=== PATIENT | female | born 1965 | race African-American/Black ===

== ENCOUNTER 2024-05-17 00:30 | Emergency (ER) | payer MEDICAID ==
[~2024-05-17] VITALS: Ht 157.5 cm; Wt 71.5 kg
[2024-05-17 00:43] VITALS: O2SAT 97
[2024-05-17 01:10] LABS: HEMATOCRIT. 24.5 % (36.0-48.0); MEAN CORPUSCULAR HGB CONC 28.5 g/dL (31.0-37.0); MEAN CORPUSCULAR VOLUME 59.7 fL (81.0-99.0); MEAN PLATELET VOLUME 8.2 fl (7.4-10.4); PLATELET 216 x1000/uL (130-400); RED CELL DISTRIBUTION WIDTH 22.6 % (11.6-14.6); WHITE BLOOD COUNT 4.8 x1000/uL (4.5-11.0)
[2024-05-17 01:16] LABS: DIFFERENTIAL COMMENT 1
[2024-05-17 01:20] LABS: CHLORIDE 115 mEq/L (98-107); POTASSIUM 3.4 mEq/L (3.5-5.1); SODIUM 146 mEq/L (136-145)
[2024-05-17 01:20] LABS: CLARITY URINE CLEAR (CLEAR); COLOR URINE YELLOW (YELLOW); GLUCOSE URINE 3+ (NEGATIVE); KETONES URINE NEGATIVE (NEGATIVE); LEUKOCYTE ESTERASE URINE 2+ (NEGATIVE); NITRITE URINE NEGATIVE (NEGATIVE); OCCULT BLOOD URINE NEGATIVE (NEGATIVE); PROTEIN URINE NEGATIVE (NEGATIVE); SPECIFIC GRAVITY URINE 1.019 (1.005-1.030); UROBILINOGEN URINE 0.2 E.U./dL (0.2-1.0)
[2024-05-17 01:21] LABS: CARBON DIOXIDE 21 mEq/L (21-32)
[2024-05-17 01:22] LABS: CALCIUM 9.3 mg/dL (8.7-10.4)
[2024-05-17 01:26] LABS: CREATININE 1.2 mg/dL (0.6-1.0); GLUCOSE 121 mg/dL (70-105)
[2024-05-17 01:27] LABS: ETHANOL BLOOD 113 mg/dL (<10); UREA NITROGEN BLOOD 9 mg/dL (9-23)
[2024-05-17 01:28] LABS: ACETAMINOPHEN < 2 ug/mL (10-30); ALANINE AMINOTRANSFERASE 13 IU/L (10-49); ALBUMIN 4.7 g/dL (3.2-4.8); ASPARTATE AMINOTRANSFERASE 18 IU/L (<34)
[2024-05-17 01:29] LABS: BILIRUBIN TOTAL 0.5 mg/dL (0.1-1.0); PROTEIN TOTAL 7.6 g/dL (6.0-8.3)
[2024-05-17 01:33] LABS: *AMPHETAMINES SCREEN URINE NEGATIVE (NEGATIVE); *BARBITURATES SCREEN URINE NEGATIVE (NEGATIVE); *BENZODIAZEPINES SCREEN URINE NEGATIVE (NEGATIVE); *COCAINE SCREEN URINE PRESUMPTIVE POSITIVE (NEGATIVE); CANNABINOID URINE SCREEN PRESUMPTIVE POSITIVE (NEGATIVE); METHADONE URINE SCREEN NEGATIVE (NEGATIVE); OPIATES URINE SCREEN NEGATIVE (NEGATIVE); PHENCYCLIDINE URINE SCREEN NEGATIVE (NEGATIVE)
[2024-05-17 01:34] LABS: ECSTASY MDMA SCREEN URINE NEGATIVE (NEGATIVE)
[2024-05-17 02:01] LABS: RBC URINE 0-2 /hpf (0-2); SQUAMOUS EPITHELIAL CELL URINE FEW /lpf (RARE/1+)
[2024-05-17 02:02] LABS: BACTERIA URINE NONE SEEN
[2024-05-17] MEDS: GABAPENTIN 300MG CAPSULE PO ONE (04:56)
[2024-05-17] MEDS: QUETIAPINE FUMARATE 50MG TABLET PO ONE (04:56)
[2024-05-17 05:07] LABS: ATYPICAL LYMPHOCYTES 1; PLATELET ESTIMATE NORMAL
[2024-05-17 05:20] LABS: HYPOCHROMASIA 2+; MICROCYTOSIS 2+
[2024-05-17] MEDS: NITROFURANTOIN 100MG M/M CAPSULE PO SCH (09:15)
[2024-05-17] MEDS: QUETIAPINE FUMARATE 50MG TABLET PO SCH (21:00)
[2024-05-17] MEDS: ATORVASTATIN CALCIUM 10MG TABLET PO SCH (21:00)
[2024-05-17] MEDS: MONTELUKAST SODIUM 10MG TABLET PO SCH (21:00)
[2024-05-17] MEDS: GABAPENTIN 300MG CAPSULE PO SCH (21:01)
[2024-05-18 11:06] VITALS: BP 127/82; PULSE 78; RESP 16; TEMP 36.94740; O2SAT 100
== END 2024-05-18 11:33 | disposition home or self-care (01) ==
LOC: ER 00:30
DX: R45.851 Suicidal ideations (principal); E11.9 Type 2 diabetes mellitus without complications; I10 Essential (primary) hypertension; Z20.822 Contact with and (suspected) exposure to COVID-19; Z98.890 Other specified postprocedural states; Z90.49 Acquired absence of other specified parts of digestive tract
CPT/HCPCS: 80053; 80305; 81003; 80307; 80329; 80320; 85025; 86850; 86900; 86901; 86920; 36415; 99285; 87426; Z7610 ×3; P9016; G0480